=== PATIENT | female | born 1990 | race American Indian/Alaskan Native ===

== ENCOUNTER 2017-01-25 16:32 | Emergency (ER) | payer OTHER ==
[2017-01-25 17:06] LABS: Basophils % (Auto) 0.5 % (0.0-1.8); Eosinophils % (Auto) 3.1 % (0.0-4.3); Hematocrit 37.2 % (30.3-42.9); Hemoglobin 12.2 gm/dl (10.1-14.3); Mean Corpuscular HGB Conc 33 % (30-34); Mean Corpuscular Hemoglobin 28 pg (28-32); Mean Corpuscular Volume 85 fl (79-97); Platelet Count 313 K/mm3 (140-440); Red Blood Count 4.37 M/mm3 (3.65-5.03); Red Cell Distribution Width 13.1 % (13.2-15.2); White Blood Count 6.4 K/mm3 (4.5-11.0)
[2017-01-25 17:21] LABS: Alanine Aminotransferase 17 units/L (7-56); Albumin/Globulin Ratio 1.3 %; Alkaline Phosphatase 89 units/L (35-129); Anion Gap 17 mmol/L; Blood Urea Nitrogen 10 mg/dL (7-17); Calcium 8.6 mg/dL (8.4-10.2); Carbon Dioxide 23 mmol/L (22-30); Chloride 104.4 mmol/L (98-107); Glucose 87 mg/dL (65-100); Lipase 38 units/L (13-60); Potassium 3.8 mmol/L (3.6-5.0); Sodium 141 mmol/L (137-145); Total Protein 7.2 g/dL (6.3-8.2)
[2017-01-25 17:40] LABS: Bilirubin,Urine NEG (Negative); Blood,Urine NEG (Negative); Ketones,Urine TR mg/dL (Negative); Leukocyte Esterase,Urine TR (Negative); Mucus,Urine 2+ /HPF; Nitrite,Urine POS (Negative); Protein,Urine <15 mg/dL mg/dL (Negative)
[2017-01-25] MEDS ORDERED: TYLENOL PO ONE (23:53)
[2017-01-25] MEDS ORDERED: NAPROSYN PO ONE (23:53)
--- NOTE | 2017-01-25 23:57 | Emergency Department Report ---
ED Abdominal Pain HPI - General Chief Complaint: Abdominal Pain Stated Complaint: ABD/R LEG PAIN Time Seen by Provider: 01/25/17 22:31 Source: patient Mode of arrival: Ambulatory Limitations: No Limitations - History of Present Illness Initial Comments: The patient is a 26-year-old female with no significant past medical history who presents with abdominal pain and right upper leg pain. Patient also states that she has been having some dysuria and urinary frequency that has been going on for the last week. Patient states that her pain is a 7 out of 10 it's located in the suprapubic area it radiates down to her pubis symphysis urinating makes the pain worse and nothing makes it better patient states that she has tried some ibuprofen for the pain which has helped. She denies any vaginal bleeding but she states that she has been having some clear vaginal discharge. Patient's symptoms have been gradual she states that she has a crampy colicky like pain. Severity scale (0 -10): 6 - Related Data Previous Rx's Medication Instructions Recorded Last Taken Type Sulfamethoxazole/Trimethoprim 1 each PO BID #10 tablet 01/25/17 Unknown Rx [Bactrim DS TAB] Allergies Allergy/AdvReac Type Severity Reaction Status Date / Time guanfacine Allergy Swelling Verified 01/25/17 21:50 Latex, Natural Rubber Allergy Swelling Verified 01/25/17 21:50 ED Review of Systems ROS: Stated complaint: ABD/R LEG PAIN Other details as noted in HPI Constitutional: denies: chills, fever Eyes: denies: eye pain, eye discharge, vision change ENT: denies: ear pain, throat pain Respiratory: denies: cough, shortness of breath, wheezing Cardiovascular: denies: chest pain, palpitations Endocrine: no symptoms reported Gastrointestinal: abdominal pain Genitourinary: dysuria, frequency Musculoskeletal: other (upper leg pain) Skin: denies: rash, lesions Neurological: denies: headache, weakness, paresthesias Psychiatric: denies: anxiety, depression Hematological/Lymphatic: denies: easy bleeding, easy bruising ED Past Medical Hx - Past Medical History Previous Medical History?: No - Surgical History Past Surgical History?: Yes Additional Surgical History: x4 - Social History Smoking Status: Never Smoker Substance Use Type: None - Medications Home Medications: Home Medications Medication Instructions Recorded Confirmed Last Taken Type Sulfamethoxazole/Trimethoprim 1 each PO BID #10 tablet 01/25/17 Unknown Rx [Bactrim DS TAB] ED Physical Exam - General Limitations: No Limitations General appearance: alert, in no apparent distress - Head Head exam: Present: atraumatic, normocephalic - Eye Eye exam: Present: normal appearance - ENT ENT exam: Present: mucous membranes moist - Neck Neck exam: Present: normal inspection - Respiratory Respiratory exam: Present: normal lung sounds bilaterally. Absent: respiratory distress - Cardiovascular Cardiovascular Exam: Present: regular rate, normal rhythm. Absent: systolic murmur, diastolic murmur, rubs, gallop - GI/Abdominal GI/Abdominal exam: Present: soft, normal bowel sounds - Extremities Exam Extremities exam: Present: normal inspection - Back Exam Back exam: Present: normal inspection - Neurological Exam Neurological exam: Present: alert, oriented X3 - Psychiatric Psychiatric exam: Present: normal affect, normal mood - Skin Skin exam: Present: warm, dry, intact, normal color. Absent: rash ED Course Vital Signs 01/25/17 01/25/17 01/25/17 16:42 21:07 21:51 Temperature 98.2 F 98.1 F Pulse Rate 70 72 70 Respiratory 20 14 16 Rate Blood Pressure 109/71 110/62 Blood Pressure 114/62 [Right] O2 Sat by Pulse 100 100 100 Oximetry - Reevaluation(s) Reevaluation #1: 01/26/17 00:02 Revaluate patient I will give patient Tylenol on naproxen for her pain. ED Medical Decision Making - Lab Data Result diagrams: 01/25/17 16:47 01/25/17 16:47 Lab Results 01/25/17 01/25/17 01/25/17 Range/Units 16:47 16:47 16:47 WBC 6.4 (4.5-11.0) K/mm3 RBC 4.37 (3.65-5.03) M/mm3 Hgb 12.2 (10.1-14.3) gm/dl Hct 37.2 (30.3-42.9) % MCV 85 (79-97) fl MCH 28 (28-32) pg MCHC 33 (30-34) % RDW 13.1 L (13.2-15.2) % Plt Count 313 (140-440) K/mm3 Lymph % (Auto) 32.7 (13.4-35.0) % Burnett % (Auto) 8.8 H (0.0-7.3) % Eos % (Auto) 3.1 (0.0-4.3) % Baso % (Auto) 0.5 (0.0-1.8) % Lymph # 2.1 (1.2-5.4) K/mm3 Burnett # 0.6 (0.0-0.8) K/mm3 Eos # 0.2 (0.0-0.4) K/mm3 Baso # 0.0 (0.0-0.1) K/mm3 Seg Neutrophils % 54.9 (40.0-70.0) % Seg Neutrophils # 3.5 (1.8-7.7) K/mm3 Sodium 141 (137-145) mmol/L Potassium 3.8 (3.6-5.0) mmol/L Chloride 104.4 (98-107) mmol/L Carbon Dioxide 23 (22-30) mmol/L Anion Gap 17 mmol/L BUN 10 (7-17) mg/dL Creatinine < 0.2 L (0.7-1.2) mg/dL Estimated GFR > 60 ml/min BUN/Creatinine Ratio 50.00 % Glucose 87 (65-100) mg/dL Calcium 8.6 (8.4-10.2) mg/dL Total Bilirubin 0.40 (0.1-1.2) mg/dL AST 22 (5-40) units/L ALT 17 (7-56) units/L Alkaline Phosphatase 89 (35-129) units/L Total Protein 7.2 (6.3-8.2) g/dL Albumin 4.0 (3.9-5) g/dL Albumin/Globulin Ratio 1.3 % Lipase 38 (13-60) units/L HCG, Qual Negative (Negative) Urine Color (Yellow) Urine Turbidity (Clear) Urine pH (5.0-7.0) Ur Specific [place] (1.003-1.030) Urine Protein (Negative) mg/dL Urine Glucose (UA) (Negative) mg/dL Urine Ketones (Negative) mg/dL Urine Blood (Negative) Urine Nitrite (Negative) Urine Bilirubin (Negative) Urine Urobilinogen (<2.0) mg/dL Ur Leukocyte Esterase (Negative) Urine WBC (Auto) (0.0-6.0) /HPF Urine RBC (Auto) (0.0-6.0) /HPF U Epithel Cells (Auto) (0-13.0) /HPF Amorphous Crystals Urine Mucus /HPF 01/25/17 Range/Units 17:21 WBC (4.5-11.0) K/mm3 RBC (3.65-5.03) M/mm3 Hgb (10.1-14.3) gm/dl Hct (30.3-42.9) % MCV (79-97) fl MCH (28-32) pg MCHC (30-34) % RDW (13.2-15.2) % Plt Count (140-440) K/mm3 Lymph % (Auto) (13.4-35.0) % Burnett % (Auto) (0.0-7.3) % Eos % (Auto) (0.0-4.3) % Baso % (Auto) (0.0-1.8) % Lymph # (1.2-5.4) K/mm3 Burnett # (0.0-0.8) K/mm3 Eos # (0.0-0.4) K/mm3 Baso # (0.0-0.1) K/mm3 Seg Neutrophils % (40.0-70.0) % Seg Neutrophils # (1.8-7.7) K/mm3 Sodium (137-145) mmol/L Potassium (3.6-5.0) mmol/L Chloride (98-107) mmol/L Carbon Dioxide (22-30) mmol/L Anion Gap mmol/L BUN (7-17) mg/dL Creatinine (0.7-1.2) mg/dL Estimated GFR ml/min BUN/Creatinine Ratio % Glucose (65-100) mg/dL Calcium (8.4-10.2) mg/dL Total Bilirubin (0.1-1.2) mg/dL AST (5-40) units/L ALT (7-56) units/L Alkaline Phosphatase (35-129) units/L Total Protein (6.3-8.2) g/dL Albumin (3.9-5) g/dL Albumin/Globulin Ratio % Lipase (13-60) units/L HCG, Qual (Negative) Urine Color Yellow (Yellow) Urine Turbidity Cloudy (Clear) Urine pH 6.0 (5.0-7.0) Ur Specific [place] 1.023 (1.003-1.030) Urine Protein <15 mg/dl (Negative) mg/dL Urine Glucose (UA) Neg (Negative) mg/dL Urine Ketones Tr (Negative) mg/dL Urine Blood Neg (Negative) Urine Nitrite Pos (Negative) Urine Bilirubin Neg (Negative) Urine Urobilinogen 2.0 (<2.0) mg/dL Ur Leukocyte Esterase Tr (Negative) Urine WBC (Auto) 2.0 (0.0-6.0) /HPF Urine RBC (Auto) 10.0 (0.0-6.0) /HPF U Epithel Cells (Auto) 2.0 (0-13.0) /HPF Amorphous Crystals Few Urine Mucus 2+ /HPF - Medical Decision Making Chief medical diagnosis: Urinary tract infection Differential multiple diagnoses: Hypokalemia, pinched nerve, gastritis UA, CBC, CMP, urine , oral analgesic medications Patient's lab at 40 findings are consistent with UTI as well as her clinical findings. Patient's physical exam is benign and she is able to his heart pill. We'll send patient home with prescription for Bactrim. Discussed return precautions to come back to the ED. Additional verbal discharge instructions were given Critical care attestation.: If time is entered above; I have spent that time in minutes in the direct care of this critically ill patient, excluding procedure time. ED Disposition Clinical Impression: UTI (urinary tract infection) Qualifiers: Urinary tract infection type: acute cystitis Hematuria presence: without hematuria Qualified Code(s): N30.00 - Acute cystitis without hematuria Disposition: TO HOME OR SELFCARE Is pt being admited?: No Does the pt Need Aspirin: No Condition: Stable Instructions: Abdominal Pain (ED), Urinary Tract Infection in Women (ED) Prescriptions: Sulfamethoxazole/Trimethoprim [Bactrim DS TAB] 1 each PO BID #10 tablet Referrals: PRIMARY CARE, [Primary Care Provider] - 3-5 Days
[2017-01-26 00:09] VITALS: BP 113/60
== END 2017-01-26 00:10 | disposition home or self-care (01) ==
LOC: ED 16:32
DX: N30.00 Acute cystitis without hematuria (principal); Z91.040 Latex allergy status; Z88.2 Allergy status to sulfonamides; Z88.8 Allergy status to other drugs, medicaments and biological substances
CPT/HCPCS: 36415; 80053; 81001; 83690; 84703; 85025

== ENCOUNTER 2017-07-09 23:13 | Emergency (ER) | payer OTHER ==
[2017-07-09 23:25] VITALS: BP 128/82
[2017-07-10 00:22] LABS: BUN/Creatinine Ratio 23; Blood Urea Nitrogen 16 mg/dL (7-17); Calcium 8.7 mg/dL (8.4-10.2); Hemolysis Index 0
[2017-07-10 00:31] LABS: INR 0.91 (0.87-1.13)
[2017-07-10 00:32] LABS: Partial Thromboplastin Time 23.6 Sec. (24.2-36.6)
[2017-07-10 00:43] LABS: Basophils % (Auto) 0.5 % (0.0-1.8); Eosinophils # (Auto) 0.2 K/mm3 (0.0-0.4); Eosinophils % (Auto) 2.9 % (0.0-4.3); Hematocrit 37.5 % (30.3-42.9); Hemoglobin 12.5 gm/dl (10.1-14.3); Lymphocytes # (Auto) 4.4 K/mm3 (1.2-5.4); Lymphocytes % (Auto) 50.1 % (13.4-35.0); Mean Corpuscular HGB Conc 33 % (30-34); Mean Corpuscular Hemoglobin 28 pg (28-32); Mean Corpuscular Volume 85 fl (79-97); Monocytes # (Auto) 0.7 K/mm3 (0.0-0.8); Monocytes % (Auto) 8.4 % (0.0-7.3); Platelet Count 365 K/mm3 (140-440); Red Blood Count 4.42 M/mm3 (3.65-5.03); Red Cell Distribution Width 12.9 % (13.2-15.2)
--- NOTE | 2017-07-10 01:11 | Cat Scan Report ---
FINAL REPORT EXAM: CT HEAD/BRAIN WO CON HISTORY: PT UNABLE TO MOVE COMPARISON: None available. TECHNIQUE: Axial images obtained skull base through vertex. FINDINGS: No acute intracranial hemorrhage, midline shift or pathologic extra axial fluid collection. Ventricles and cisterns are normal in size and configuration for the patient's age. Blanton-white differentiation preserved. Calvarium grossly intact. Visualized ocular globes are grossly unremarkable. Minimal mucosal thickening the ethmoid air cells. Mastoid air cells are clear. IMPRESSION: No grossly acute intracranial abnormality.
--- NOTE | 2017-07-10 01:30 | Emergency Department Report ---
ED General Adult HPI - General Chief complaint: Weakness Stated complaint: UNABLE TO MOVE Time Seen by Provider: 07/10/17 00:30 Source: patient Mode of arrival: Stretcher Limitations: Physical Limitation - History of Present Illness Initial comments: Patient is 27 years old female with no significant past medical history brought in by family member here stating that patient is unable to move her upper and lower extremities and having difficulty communicating, patient's symptoms started this evening. Boyfriend stated that she was having shortness of breath and his symptoms happen. He also added that patient mother of brain tumor 2 years ago, her mother initial symptoms was same as this patient presentation now. - Related Data Previous Rx's Medication Instructions Recorded Last Taken Type Sulfamethoxazole/Trimethoprim 1 each PO BID #10 tablet 01/25/17 Unknown Rx [Bactrim DS TAB] Allergies Allergy/AdvReac Type Severity Reaction Status Date / Time guanfacine Allergy Swelling Verified 01/25/17 21:50 Latex, Natural Rubber Allergy Swelling Verified 01/25/17 21:50 ED Review of Systems ROS: Stated complaint: UNABLE TO MOVE Other details as noted in HPI Comment: All other systems reviewed and negative Constitutional: denies: chills, fever Respiratory: denies: cough, orthopnea, shortness of breath, SOB with exertion, SOB at rest, wheezing Cardiovascular: denies: chest pain, palpitations, dyspnea on exertion Gastrointestinal: denies: abdominal pain, nausea, vomiting, diarrhea, constipation, hematemesis, hematochezia Musculoskeletal: denies: back pain Neurological: weakness ED Past Medical Hx - Surgical History Additional Surgical History: x4 - Social History Smoking Status: Never Smoker Substance Use Type: None - Medications Home Medications: Home Medications Medication Instructions Recorded Confirmed Last Taken Type Sulfamethoxazole/Trimethoprim 1 each PO BID #10 tablet 01/25/17 Unknown Rx [Bactrim DS TAB] ED Physical Exam - General Limitations: Physical Limitation General appearance: alert, in no apparent distress, other (patient had good muscle tone.) - Head Head exam: Present: atraumatic, normocephalic, normal inspection - Eye Eye exam: Present: normal appearance, PERRL - ENT ENT exam: Present: normal exam, normal orophraynx - Neck Neck exam: Present: normal inspection, full ROM. Absent: tenderness, meningismus, lymphadenopathy, thyromegaly - Respiratory Respiratory exam: Present: normal lung sounds bilaterally. Absent: respiratory distress, wheezes, rales, rhonchi, chest wall tenderness, accessory muscle use, decreased breath sounds, prolonged expiratory - Cardiovascular Cardiovascular Exam: Present: regular rate, normal rhythm, normal heart sounds - GI/Abdominal GI/Abdominal exam: Present: soft, normal bowel sounds. Absent: distended, tenderness, guarding, rebound, rigid, organomegaly, mass, bruit, pulsatile mass , hernia - Extremities Exam Extremities exam: Present: normal inspection, full ROM, normal capillary refill - Back Exam Back exam: Present: normal inspection, full ROM. Absent: tenderness, CVA tenderness (R), CVA tenderness (L), muscle spasm, paraspinal tenderness, vertebral tenderness - Neurological Exam Neurological exam: Present: alert, oriented X3, CN II-XII intact - Skin Skin exam: Present: warm, intact, normal color ED Course Vital Signs 07/09/17 23:19 Temperature 97.7 F Pulse Rate 93 H Blood Pressure 128/82 O2 Sat by Pulse 98 Oximetry - Reevaluation(s) Reevaluation #1: 07/10/17 04:11 Patient is sitting in her bed talking to her family in no acute distress moving all extremities. I believe this patient had possible conversion disorder. Patient will be discharged home to follow up with her primary care physician for further management. ED Medical Decision Making - Lab Data Result diagrams: 07/09/17 23:36 07/09/17 23:36 - Radiology Data Radiology results: report reviewed Referring Physician: NACHO MARTE Patient Name: OLIVER LAUGHLIN Date of : 1990 Sex: Female Report Date: 2017-07-09 Report Status: Finalized Findings [facility] [address] [place] [address] Cat Scan Report Signed Patient: OLIVER LAUGHLIN MR#: [id number] : 1990 Acct:[id number] Age/Sex: 27 / F ADM Date: 07/09/17 Loc: ED Attending Dr: Ordering Physician: NACHO MARTE Date of Service: 07/10/17 Procedure(s): CT head/brain wo con Accession Number(s): [id number] cc: NACHO MARTE FINAL REPORT EXAM: CT HEAD/BRAIN WO CON HISTORY: PT UNABLE TO MOVE COMPARISON: None available. TECHNIQUE: Axial images obtained skull base through vertex. FINDINGS: No acute intracranial hemorrhage, midline shift or pathologic extra axial fluid collection. Ventricles and cisterns are normal in size and configuration for the patient's age. Blanton-white differentiation preserved. Calvarium grossly intact. Visualized ocular globes are grossly unremarkable. Minimal mucosal thickening the ethmoid air cells. Mastoid air cells are clear. IMPRESSION: No grossly acute intracranial abnormality. Transcribed By: LMA Dictated By: PURNIMA ANNA MD Electronically Authenticated By: PURNIMA ANNA MD Signed Date/Time: 07/09/172108 DD/ 08 TD/TT: 07/09/172108 Critical care attestation.: If time is entered above; I have spent that time in minutes in the direct care of this critically ill patient, excluding procedure time. ED Disposition Clinical Impression: Weakness generalized Disposition: DC-01 TO HOME OR SELFCARE Is pt being admited?: No Condition: Stable Instructions: Weakness (ED) Referrals: PRIMARY CARE, [Primary Care Provider] - 3-5 Days Forms: Accompanied Note, Work/School Release Form(ED)
[2017-07-10 03:26] LABS: Bilirubin,Urine NEG (Negative); Blood,Urine LG (Negative); Color,Urine Yellow (Yellow); Mucus,Urine FEW /HPF; Nitrite,Urine NEG (Negative); Protein,Urine <15 mg/dL mg/dL (Negative)
[2017-07-10 03:28] LABS: Amphetamine Screen,Urine PRESUMPTIVE NEGATIVE; Benzodiazepines Screen,Urine PRESUMPTIVE NEGATIVE; Cannabinoid Screen,Urine PRESUMPTIVE NEGATIVE; Cocaine Screen,Urine PRESUMPTIVE NEGATIVE; Methadone Screen,Urine PRESUMPTIVE NEGATIVE; Opiate Screen,Urine PRESUMPTIVE NEGATIVE
== END 2017-07-10 04:20 | disposition home or self-care (01) ==
LOC: ED 23:13
DX: R53.1 Weakness (principal); R06.02 Shortness of breath
CPT/HCPCS: 36415; 70450; 80048; 80307; 81001; 84484; 84703; 85025; 85610; 85670; 85730

== ENCOUNTER 2017-12-04 10:41 | Outpatient (CLI) | payer OTHER | END 2017-12-04 10:42 | disposition home or self-care (01) | LOC: WOUND 10:41 | PROVIDERS: ATTEND Surgery | DX: T81.89XA Other complications of procedures, not elsewhere classified, initial encounter (principal); Y83.8 Other surgical procedures as the cause of abnormal reaction of the patient, or of later complication, without mention of misadventure at the time of the procedure; Y92.89 Other specified places as the place of occurrence of the external cause | CPT/HCPCS: 99215; G0463 ==

== ENCOUNTER 2017-12-11 10:13 | Outpatient (CLI) | payer OTHER ==
[2017-12-11] MEDS ORDERED: XYLOCAINE TOPICAL 2% 5ML ONE (10:48)
[2017-12-11] MEDS ORDERED: XYLOCAINE TOPICAL 2% 5ML TP ONE (11:01)
== END 2017-12-11 10:14 | disposition home or self-care (01) ==
LOC: WOUND 10:13
PROVIDERS: ATTEND Surgery
DX: T81.89XD Other complications of procedures, not elsewhere classified, subsequent encounter (principal); Y83.8 Other surgical procedures as the cause of abnormal reaction of the patient, or of later complication, without mention of misadventure at the time of the procedure

== ENCOUNTER 2017-12-18 09:59 | Outpatient (CLI) | payer OTHER | END 2017-12-18 10:00 | disposition home or self-care (01) | LOC: WOUND 09:59 | PROVIDERS: ATTEND Surgery | DX: T81.89XD Other complications of procedures, not elsewhere classified, subsequent encounter (principal); Y83.8 Other surgical procedures as the cause of abnormal reaction of the patient, or of later complication, without mention of misadventure at the time of the procedure | CPT/HCPCS: 99213; G0463 ==

== ENCOUNTER 2021-09-30 00:19 | Emergency (ER) | payer OTHER ==
[2021-09-30 01:10] VITALS: BP 127/86
--- NOTE | 2021-09-30 10:36 | Electrocardiograph Report ---
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
== END 2021-09-30 01:20 | disposition left against medical advice (07) ==
LOC: ED 00:19
DX: R06.02 Shortness of breath (principal); Z53.21 Procedure and treatment not carried out due to patient leaving prior to being seen by health care provider
CPT/HCPCS: 93005